=== PATIENT | female | born 1990 | race Caucasian/White ===

== ENCOUNTER 2018-01-15 22:02 | Emergency (ER) | payer OTHER ==
[2018-01-15 22:08] VITALS: BP 148/103; PULSE 101; RESP 16; TEMP 98.4; O2SAT 96
--- NOTE | 2018-01-15 22:10 | EDPHY ---
H & P Stated Complaint: Dog bite to R thumb Time Seen by Provider: 01/15/18 22:04 HPI/ROS: HPI CHIEF COMPLAINT: Right thumb dog bite. 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 She sustained a very small laceration to the lateral aspect of the right thumb. It is less than half a cm. Not gaping. No tendon involvement no bony involvement. No obvious signs of infection. No foreign body visualized. Patient reports her tetanus shot is up-to-date. She thinks dogs at rabies vaccination. Past Medical History: No significant medical history Past Surgical History: No significant surgical history Social History: Denies drugs alcohol tobacco. Family History: Noncontributory ROS REVIEW OF SYSTEMS: A comprehensive 10 point review of systems is otherwise negative aside from elements mentioned in the history of present illness. Exam Constitutional appears well nontoxic no acute distress, triage nursing summary reviewed, vital signs reviewed, awake/alert. Eyes normal conjunctivae and sclera, EOMI, PERRLA. HENT normal inspection, atraumatic, moist mucus membranes, no epistaxis, neck supple/ no meningismus, no raccoon eyes. Respiratory clear to auscultation bilaterally, normal breath sounds, no respiratory distress, no wheezing. Cardiovascular rate normal, regular rhythm, no murmur, no edema, distal pulses normal. Gastrointestinal soft, non-tender, no rebound, no guarding, normal bowel sounds, no distension, no pulsatile mass. Genitourinary no CVA tenderness. Musculoskeletal right thumb lateral aspect of the right foot thumb proximal to the nail bed is a very small less than half a cm laceration, no obvious signs of arterial injury tendon injury, no pus, no foreign bodies visualized, neurovascular intact no midline vertebral tenderness, full range of motion, no calf swelling, no tenderness of extremities, no meningismus, good pulses, neurovascularly intact. Skin pink, warm, & dry, no rash, skin atraumatic. Neurologic awake, alert and oriented x 3, AAOx3, moves all 4 extremities equally, motor intact, sensory intact, CN II-XII intact, normal cerebellar, normal vision, normal speech. Psychiatric normal mood/affect. Heme/Lymph/Immune no lymphadenopathy. Differential Diagnosis: Includes but is not limited to in a particular order dog bite to the left thumb, soft tissue injury, laceration, foreign body, bony abnormality Medical Decision Making: Plan for this patient x-ray left thumb, started on Augmentin 1st dose given in the emergency room. Tetanus shot is up-to-date. Patient is calling the vet to make sure the dog has rabies vaccination. Re-evaluation: Will prescribe Augmentin. Finger splint. Watch closely for signs of infection. X-ray will be reviewed for foreign body. X-ray of the right thumb negative for acute fracture or foreign bodies. Interpreted by myself. Augmentin given here in emergency room and finger splint for comfort. Augmentin prescription. Return precautions discussed with the patient she understands. Source: Patient - Personal History Current Tetanus/Diphtheria Vaccine: Yes Current Tetanus Diphtheria and Acellular Pertussis (TDAP): Yes Tetanus Vaccine Date: within 10 yrs - Medical/Surgical History Hx Asthma: No Hx Chronic Respiratory Disease: No Hx Diabetes: No Hx Cardiac Disease: No Hx Renal Disease: No Hx Cirrhosis: No Hx Alcoholism: No Hx HIV/AIDS: No Hx Splenectomy or Spleen Trauma: No Other PMH: previous visit for ruptured ovarian cyst,RT ACL REPAIR - Social History Smoking Status: Current some day smoker Constitutional: Initial Vital Signs Temperature (C) 36.9 C 01/15/18 22:04 Heart Rate 101 H 01/15/18 22:04 Respiratory Rate 16 01/15/18 22:04 Blood Pressure 148/103 H 01/15/18 22:04 O2 Sat (%) 96 01/15/18 22:04 O2 Delivery Mode Room Air Allergies/Adverse Reactions: kiwi Allergy (Verified 01/15/18 22:08) pineapple Allergy (Verified 01/15/18 22:08) walnut Allergy (Verified 01/15/18 22:08) Home Medications: Medication Instructions Recorded Amoxicillin/Clavulanate Pot 875 mg PO BID #14 tab 01/15/18 [Augmentin 875 MG TAB (*)] Medical Decision Making - Data Points Medications Given: Discontinued Medications Amoxicillin/Clavulanate Potassium (Augmentin 875mg) 875 mg PO EDNOW ONE PRN Reason: Protocol Stop: 01/15/18 22:16 Last Admin: 01/15/18 22:26 Dose: 875 mg Departure - Departure Disposition: Home, Routine, Self-Care Clinical Impression: Dog bite Qualifiers: Encounter type: initial encounter Qualified Code(s): W54.0XXA - Bitten by dog, initial encounter Condition: Good Instructions: Animal Bite (ED) Additional Instructions: 1. Stay in her finger splint for comfort. 2. Augmentin as prescribed. Take with probiotics or yogurt. With food. It may cause diarrhea. 3. Watch for signs of infection this includes redness, drainage, swelling, pain. Referrals: NONE *PRIMARY CARE P,. [Primary Care Provider] - As per Instructions Prescriptions: Amoxicillin/Clavulanate Pot [Augmentin 875 MG TAB (*)] 875 mg PO BID #14 tab
[2018-01-15] MEDS ORDERED: AMOXICILLIN/CLAVULANATE POT 875/125 MG TAB PO ONE (22:15)
== END 2018-01-15 22:47 | disposition home or self-care (01) ==
DX: S61.051A Open bite of right thumb without damage to nail, initial encounter (principal); F17.200 Nicotine dependence, unspecified, uncomplicated; W54.0XXA Bitten by dog, initial encounter; Y92.69 Other specified industrial and construction area as the place of occurrence of the external cause; Y99.0 Civilian activity done for income or pay; Y93.89 Activity, other specified